=== PATIENT | male | born 1990 | race Hispanic/Latino ===

== ENCOUNTER 2024-05-30 17:13 | Emergency (ER) | payer SELFPAY ==
[2024-05-30] MEDS ORDERED: Lidocaine 1% w/Epinephrine 1:200K 30 ML VIAL ONE (17:27)
[2024-05-30] MEDS ORDERED: Boostrix 0.5 ML (Tdap) VIAL (>/=7 yrs of age) ONE (18:12)
[2024-05-30] MEDS ORDERED: Ibuprofen 800 MG TAB ONE (18:14)
[2024-05-30] MEDS ORDERED: Amoxicillin/Potassium Clav 875 MG TAB ONE (18:14)
== END 2024-05-30 19:14 | disposition home or self-care (01) ==
LOC: CSHERS 17:13
DX: S02.2XXA Fracture of nasal bones, initial encounter for closed fracture (principal); S01.112A Laceration without foreign body of left eyelid and periocular area, initial encounter; E11.9 Type 2 diabetes mellitus without complications; Z87.891 Personal history of nicotine dependence; Z23 Encounter for immunization; X58.XXXA Exposure to other specified factors, initial encounter
CPT/HCPCS: 12013; 70486; 76376; 90471; 90715